=== PATIENT | female | born 1995 | race Caucasian/White ===

== ENCOUNTER 2019-05-24 11:21 | Emergency (ER) | payer OTHER ==
[2019-05-24] MEDS ORDERED: KETOROLAC TROMETHAMINE INJ/PF 30 MG/1 ML SDV IV ONE (12:44)
[2019-05-24] MEDS ORDERED: DIPHENHYDRAMINE HCL 50 MG/ML VIAL IV ONE (12:44)
[2019-05-24] MEDS ORDERED: NORMAL SALINE 1000 ML 1,000 ML IV ONE (12:44)
[2019-05-24] MEDS ORDERED: ONDANSETRON HCL INJ/PF 4 MG/2 ML SDV IV ONE (12:44)
--- NOTE | 2019-05-24 12:44 | ER Document Report ---
HPI - HPI Time Seen by Provider: 05/24/19 12:17 Pain Level: 5 Notes: Otherwise healthy 24-year-old female presenting to the emergency department with a headache that began yesterday. Patient describes it as a gradual onset, she states there is associated nausea with vomiting. She states she smoked 3 cigarettes yesterday which was the first time she had ever done this and she thinks the headache may be related to that. - REPRODUCTIVE LMP: 05/21/19 Reproductive: DENIES: : Past Medical History - General Information source: Patient - Social History Smoking Status: Current Some Day Smoker Family History: Reviewed & Not Pertinent Patient has suicidal ideation: No Patient has homicidal ideation: No - Medical History Medical History: Negative Surgical Hx: Negative Vertical Provider Document - CONSTITUTIONAL Notes: PHYSICAL EXAMINATION: GENERAL: Well-appearing, well-nourished and in no acute distress. HEAD: Atraumatic, normocephalic. EYES: Pupils equal round and reactive to light, extraocular movements intact, conjunctiva are normal. ENT: Nares patent, oropharynx clear without exudates. Moist mucous membranes. NECK: Normal range of motion, supple without lymphadenopathy LUNGS: Breath sounds clear to auscultation bilaterally and equal. No wheezes rales or rhonchi. HEART: Regular rate and rhythm without murmurs ABDOMEN: Soft, nontender, nondistended abdomen. No guarding, no rebound. No masses appreciated. Female : deferred Musculoskeletal: Normal range of motion, no pitting or edema. No cyanosis. NEUROLOGICAL: Cranial nerves grossly intact. Normal speech, normal gait. Normal sensory, motor exams PSYCH: Normal mood, normal affect. SKIN: Warm, Dry, normal turgor, no rashes or lesions noted. Course - Re-evaluation Re-evalutation: Presentation of a headache that appears to be most consistent with tension versus migrainous type headache. Headache was not maximal in onset, patient has no focal neurologic deficits, no nuchal rigidity, vital signs within normal limits, no papilledema, and patient is overall well in appearance. Based on clinical history and examination I do not suspect an acute subarachnoid hemorrhage, dural venous sinus thrombosis, acute meningitis, or intercranial mass. Given my low clinical suspicion for any acute life-threatening etiology, I do not feel advanced neuro imaging or laboratory testing is indicated at this time. Will proceed with headache cocktail and reassess. Patient reports headache completely resolved after administration of medications here in the emergency department. She will be discharged home at this time. - Vital Signs Vital signs: Temp Pulse Resp BP Pulse Ox 97.7 F 83 12 110/68 100 05/24/19 11:34 05/24/19 11:34 05/24/19 11:34 05/24/19 11:34 05/24/19 11:34 Discharge - Discharge Clinical Impression: Headache Qualifiers: Headache type: unspecified Headache chronicity pattern: unspecified pattern Intractability: not intractable Qualified Code(s): R51 - Headache Condition: Stable Disposition: HOME, SELF-CARE Additional Instructions: You were seen today for a migraine headache. Please follow-up with your primary care doctor regarding today's ED visit. Return to emergency department immediately if you develop a headache that gets to its maximum severity within 20 minutes of onset, you pass out, you develop weakness, numbness, changes in your vision, become unable to keep any fluids down for more than 12 hours, or develop a fever greater than 100.4 degrees Fahrenheit. If you develop a similar migraine headache in the future I recommend that you immediately take 600 mg of ibuprofen and 50 mg of Benadryl and go to sleep as quickly as possible. This can often prevent your migraine headache from becoming severe. Prescriptions: Ondansetron [Zofran Odt 4 mg Tablet] 1 - 2 tab PO Q4H PRN #15 tab.rapdis PRN Reason: For Nausea/Vomiting
[2019-05-24 14:37] VITALS: BP 104/49
== END 2019-05-24 14:38 | disposition home or self-care (01) ==
LOC: ER 11:21
DX: R51 Headache (principal); R11.2 Nausea with vomiting, unspecified; F17.210 Nicotine dependence, cigarettes, uncomplicated
CPT/HCPCS: 99283; 96361; 96374; 96375; J1200; J1885; J2405; J7030

== ENCOUNTER 2019-10-24 00:37 | Emergency (ER) | payer OTHER ==
[2019-10-24] MEDS ORDERED: IBUPROFEN 400 MG TABLET PO ONE (01:42)
--- NOTE | 2019-10-24 03:28 | RADIOLOGY REPORT (SQ) ---
CHEST X-RAY 2 view on 10/24/2019 at 3:02 AM CLINICAL INDICATION: Chest pain COMPARISON: None FINDINGS: The lungs are clear. Cardiac, hilar and mediastinal contours are within normal limits. Pulmonary vascularity is within normal limits. No bony abnormality is noted. IMPRESSION: No active disease.
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
[2019-10-24 05:36] VITALS: BP 98/59
[2019-10-24] MEDS ORDERED: ONDANSETRON 4 MG TAB.RAPDIS PO ONE (05:51)
[2019-10-24] MEDS ORDERED: OXYCODONE-ACETAMINOPHEN 5-325 MG TABLET PO ONE (05:51)
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
== END 2019-10-24 06:00 | disposition home or self-care (01) ==
LOC: ER 00:37
DX: M79.641 Pain in right hand (principal); M25.531 Pain in right wrist; R07.81 Pleurodynia; M54.5 Low back pain; V87.7XXA Person injured in collision between other specified motor vehicles (traffic), initial encounter
CPT/HCPCS: 99284; 71046; 73130; S0119; J3490

== ENCOUNTER 2019-10-26 22:58 | Emergency (ER) | payer OTHER ==
[2019-10-26 23:13] VITALS: BP 116/77
[2019-10-26] MEDS ORDERED: ACETAMINOPHEN 325 MG TABLET PO ONE (23:33)
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
== END 2019-10-26 23:40 | disposition home or self-care (01) ==
LOC: ER 22:58
DX: M54.40 Lumbago with sciatica, unspecified side (principal); V49.9XXA Car occupant (driver) (passenger) injured in unspecified traffic accident, initial encounter; F41.9 Anxiety disorder, unspecified
CPT/HCPCS: 99283

== ENCOUNTER 2019-11-05 12:37 | Emergency (ER) | payer OTHER ==
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
[2019-11-05 13:23] LABS: ABSOLUTE EOSINOPHILS # (AUTO) 0.2 10^3/uL (0.0-0.6); ABSOLUTE MONOCYTES (AUTO) 0.4 10^3/uL (0.1-1.4); ABSOLUTE NEUT (AUTO) 2.3 10^3/uL (1.7-8.2); BASOPHILS % (AUTO) 0.6 % (0-2); EOSINOPHILS % (AUTO) 3.4 % (0-6); HEMATOCRIT 39.1 % (36.0-47.0); HEMOGLOBIN 13.4 g/dL (12.0-15.5); LYMPHOCYTES % (AUTO) 41.5 % (13-45); MEAN CORPUSCULAR HEMOGLOBIN 30.3 pg (27.0-33.4); MEAN CORPUSCULAR HGB CONC 34.3 g/dL (32.0-36.0); MEAN CORPUSCULAR VOLUME 88 fl (80-97); MONOCYTES % (AUTO) 7.9 % (3-13); PLATELET COUNT 219 10^3/uL (150-450); RED BLOOD COUNT 4.44 10^6/uL (3.72-5.28); RED CELL DISTRIBUTION WIDTH 13.3 % (11.5-14.0); SEGMENTED NEUTROPHILS % (AUTO) 46.6 % (42-78); TOTAL CELLS COUNTED % (AUTO) 100 %; WHITE BLOOD COUNT 4.9 10^3/uL (4.0-10.5)
[2019-11-05 13:42] LABS: APPEARANCE,URINE CLEAR; BILIRUBIN,URINE NEGATIVE (NEGATIVE); COLOR,URINE YELLOW; GLUCOSE, URINE NEGATIVE (NEGATIVE); KETONES,URINE NEGATIVE (NEGATIVE); LEUKOCYTE ESTERASE,URINE NEGATIVE (NEGATIVE); NITRITE,URINE NEGATIVE (NEGATIVE); PROTEIN,URINE NEGATIVE (NEGATIVE); URINE SPECIFIC GRAVITY 1.017; UROBILINOGEN,URINE NEGATIVE mg/dL (<2.0)
[2019-11-05 13:46] LABS: ALKALINE PHOSPHATASE 48 U/L (38-126); ANION GAP 9 (5-19); ASPARTATE AMINO TRANSFERASE 22 U/L (14-36); BILIRUBIN,DIRECT 0.3 mg/dL (0.0-0.4); BILIRUBIN,TOTAL 1.2 mg/dL (0.2-1.3); BLOOD UREA NITROGEN 13 mg/dL (7-20); CALCIUM 9.8 mg/dL (8.4-10.2); CARBON DIOXIDE 28 mmol/L (22-30); CHLORIDE 101 mmol/L (98-107); GLUCOSE 115 mg/dL (75-110); POTASSIUM 4.2 mmol/L (3.6-5.0); TOTAL PROTEIN 7.7 g/dL (6.3-8.2)
[2019-11-05 13:49] LABS: ADD MANUAL MICROSCOPIC YES
--- NOTE | 2019-11-05 15:26 | RADIOLOGY REPORT (SQ) ---
EXAM DESCRIPTION: U/S OB TRANSVAG W/DOPPLER IMAGES COMPLETED DATE/TIME: 11/05/2019 3:07 pm REASON FOR STUDY: bleeding/pain COMPARISON: None. TECHNIQUE: Transvaginal and transabdominal static and realtime grayscale images acquired of the pelv is. Additional selected spectral and color Doppler images recorded. All images stored on PACs. CLINICAL AGE: 5 weeks 2 days. BHC,688 LIMITATIONS: None. FINDINGS: UTERUS: No visualized intrauterine . RIGHT ADNEXA: Complex area in the right adnexum measuring 2.4 x 2.6 x 1.7 cm. In this clinical setti ng ectopic cannot be excluded. This is separate from the right ovary. No evidence of tors ion. No adnexal free fluid. No adnexal masses. LEFT ADNEXA: Normal ovary with normal vascular flow. No adnexal free fluid. No adnexal masses. FREE FLUID: None. OTHER: No other significant finding. IMPRESSION: NO VISUALIZED INTRA- OR EXTRAUTERINE . COMPLEX AREA IN THE RIGHT ADNEXUM MEASURING 2.4 X 2.6 X 1.7 CM. ECTOPIC CANNOT BE EXCLUDED . FOLLOW-UP ULTRASOUND AND SERIAL BHCG LEVELS STRONGLY RECOMMENDED TO ACCURATELY ASSESS STATU S. TECHNICAL DOCUMENTATION: JOB ID: [id number] 2010 [employer]- All Rights Reserved Reading location - IP/workstation name: [email or web address]
--- NOTE | 2019-11-05 17:45 | ER Document Report ---
ED General - General Chief Complaint: Vag Bleeding, +preg <12wks Stated Complaint: VAGINAL BLEEDING Time Seen by Provider: 11/05/19 12:56 Mode of Arrival: Ambulatory Information source: Patient Notes: 24-year-old female coming in today with left pelvic cramping and bleeding. Patient notes that she had a positive home test last night. Came in to have this further evaluated. She denies fevers and shaking chills. No nausea vomiting or diarrhea. Patient reports that the bleeding is similar to that of her normal menses. TRAVEL OUTSIDE OF THE [place] IN LAST 30 DAYS: No - Related Data Allergies/Adverse Reactions: Penicillins Allergy (Verified 11/05/19 12:54) Sulfa (Sulfonamide Antibiotics) Allergy (Verified 11/05/19 12:54) Home Medications: no home meds Past Medical History - General Information source: Patient Last Menstrual Period: Sep 28 - Social History Smoking Status: Never Smoker Chew tobacco use (# tins/day): No Frequency of alcohol use: None Drug Abuse: None Family History: Reviewed & Not Pertinent Patient has homicidal ideation: No - Immunizations Immunizations up to date: Yes Hx Diphtheria, Pertussis, Tetanus Vaccination: Yes Review of Systems - Review of Systems Notes: Constitutional: No fevers. No chills. EENT: No eye redness. No eye pain. No ear pain. No sore throat. Cardiovascular: No chest pain. No palpitations. Respiratory: No cough. No shortness of breath. No respiratory distress. Gastrointestinal: +abdominal pain. No nausea, vomiting, or diarrhea. Genitourinary: Atraumatic. No lesions. No pain. +vaginal bleeding Musculoskeletal: Atraumatic. No swelling. No deformities. Skin: No rash or lesions. Lymphatic: No swollen lymph nodes. Neurologic: No headache. No syncope. Psychiatric: No suicidal or homicidal ideation. Physical Exam - Vital signs Vitals: Temp Pulse Resp BP Pulse Ox 98.0 F 93 18 96/75 L 98 11/05/19 12:43 11/05/19 12:43 11/05/19 12:43 11/05/19 12:43 11/05/19 12:43 - Notes Notes: General: Well-developed, well-nourished. In no acute distress. Non-toxic appearing. Cardiac: Well-perfused. Regular rate and rhythm. No murmurs, rubs, or gallops. Pulmonary: No respiratory distress. No cyanosis. Bilateral lung fiels are clear to auscultation. Abdominal: Tenderness to deep palpation left lower abdomen. No guarding or rebound. Bowel sounds are present in all 4 quadrants HEENT: Head is atraumatic. Conjunctivae not reddened. No tearing. PERRL. EOMI. Orbits atraumatic. No periorbital swelling or erythema. Oropharynx is without erythema, swelling, or exudates. Neck: Supple. No adenopathy. No meningismus. Dermatologic: Warm with good turgor. No rash. Atraumatic. Chest: Atraumatic. No chest wall tenderness to palpation. Musculoskeletal: Moves all extremities well. No range of motion deficits. no muscular or joint tenderness. No paraspinal muscle tenderness. no midline spinal tenderness or step-off. Genitourinary: Examination deferred Neurologic: No gross neurologic deficits. Psychiatric: Normal mood. Course - Re-evaluation Re-evalutation: 11/05/19 17:41 Patient's labs had resulted as well as her ultrasound prior to me seeing the patient. Patient has an 11,000 beta hCG quantitative and an ultrasound that shows no evidence of an intrauterine or extrauterine . There is a complex mass in the right adnexa concerning for ectopic . Ectopic was not ruled out on this study. I made a phone call to Dr. Harrison who is on-call for obstetrics. Given the information, he requested that we order the appropriate dosing of methotrexate and have the patient follow-up promptly in 4 days in the clinic to have her beta quantitative hCG levels rechecked. In the meantime have the patient return here if increasing pain or bleeding. - Vital Signs Vital signs: Temp Pulse Resp BP Pulse Ox 98.0 F 93 18 96/75 L 98 11/05/19 12:43 11/05/19 12:43 11/05/19 12:43 11/05/19 12:43 11/05/19 12:43 - Laboratory Result Diagrams: 11/05/19 13:10 11/05/19 13:10 Laboratory results interpreted by me: 11/05/19 11/05/19 13:10 13:10 Glucose 115 H Beta HCG, Quant 88451.00 H Urine Blood LARGE H - Diagnostic Test Radiology reviewed: Reports reviewed Discharge - Discharge Clinical Impression: Ectopic Qualifiers: Location of ectopic : unspecified location Intrauterine status: without intrauterine Qualified Code(s): O00.90 - Unspecified ectopic without intrauterine Condition: Good Disposition: HOME, SELF-CARE Instructions: Ectopic , Non-Surgical ([facility]) Additional Instructions: You are instructed to follow-up promptly in 4 days in the clinic where Dr. Harrison practices to have your blood work rechecked. Forms: Return to Work Referrals: CLARK HARRISON MD [ACTIVE STAFF] - 11/09/19 (exactly 4 days, call ahead to make the appointment)
[2019-11-05] MEDS ORDERED: DISPOSABLE IM ONE (19:00)
[2019-11-05] MEDS ORDERED: METHOTREXATE SODIUM IM ONE (19:00)
[2019-11-05 20:01] VITALS: BP 96/71
[2019-11-05] MEDS ORDERED: ONDANSETRON ODT 4 MG TAB (6 TAB/ER DISP) PO PRN (20:10)
== END 2019-11-05 20:16 | disposition home or self-care (01) ==
LOC: ER 12:37
DX: O00.90 Unspecified ectopic pregnancy without intrauterine pregnancy (principal)
CPT/HCPCS: 99284; 96372; 86900; 86901; 36415; 84702; 85025; 80053; 81001; 76817; 93976; J9260; J3490

== ENCOUNTER → 2019-11-26 | Outpatient (CLI) | payer OTHER ==
[2019-11-26 16:53] LABS: ABSOLUTE EOSINOPHILS # (AUTO) 0.2 10^3/uL (0.0-0.6); ABSOLUTE LYMPHOCYTES (AUTO) 2.1 10^3/uL (0.5-4.7); ABSOLUTE MONOCYTES (AUTO) 0.6 10^3/uL (0.1-1.4); ABSOLUTE NEUT (AUTO) 4.5 10^3/uL (1.7-8.2); BASOPHILS % (AUTO) 0.3 % (0-2); HEMATOCRIT 35.8 % (36.0-47.0); HEMOGLOBIN 12.5 g/dL (12.0-15.5); LYMPHOCYTES % (AUTO) 27.8 % (13-45); MEAN CORPUSCULAR HEMOGLOBIN 30.2 pg (27.0-33.4); MEAN CORPUSCULAR HGB CONC 34.9 g/dL (32.0-36.0); MEAN CORPUSCULAR VOLUME 87 fl (80-97); PLATELET COUNT 206 10^3/uL (150-450); RED BLOOD COUNT 4.13 10^6/uL (3.72-5.28); RED CELL DISTRIBUTION WIDTH 13.2 % (11.5-14.0); SEGMENTED NEUTROPHILS % (AUTO) 60.9 % (42-78); TOTAL CELLS COUNTED % (AUTO) 100 %; WHITE BLOOD COUNT 7.5 10^3/uL (4.0-10.5)
[2019-11-26 17:09] LABS: ALBUMIN 4.5 g/dL (3.5-5.0); ALKALINE PHOSPHATASE 44 U/L (38-126); ANION GAP 9 (5-19); ASPARTATE AMINO TRANSFERASE 19 U/L (14-36); BILIRUBIN,DIRECT 0.3 mg/dL (0.0-0.4); BILIRUBIN,TOTAL 0.7 mg/dL (0.2-1.3); BLOOD UREA NITROGEN 13 mg/dL (7-20); CALCIUM 9.5 mg/dL (8.4-10.2); CARBON DIOXIDE 27 mmol/L (22-30); CHLORIDE 103 mmol/L (98-107); GLUCOSE 91 mg/dL (75-110); TOTAL PROTEIN 6.7 g/dL (6.3-8.2)
== END ==
LOC: OD 15:32
PROVIDERS: ATTEND Obstetrics & Gynecology
DX: O00.90 Unspecified ectopic pregnancy without intrauterine pregnancy (principal)
CPT/HCPCS: 36415; 80053; 84702; 85025

== ENCOUNTER 2020-02-29 13:37 | Emergency (ER) | payer OTHER ==
--- NOTE | 2020-02-29 14:55 | ER Document Report ---
ED General - General Chief Complaint: Abdominal Pain Stated Complaint: ABDOMINAL PAIN Time Seen by Provider: 02/29/20 14:47 Primary Care Provider: VICKEY SHI MD [ACTIVE PROVISIONAL STAFF] - 03/02/20 TRAVEL OUTSIDE OF THE [place] IN LAST 30 DAYS: No - HPI Notes: 24-year-old female G3, P1 LMP 01/27/2020 with a history of a right ovarian ectopic in October 2019 presents to the emergency room today for complaints of left pelvic cramping that started these last couple of days. Denies any vaginal bleeding or vaginal discharge. Patient is concerned that she may be having an other ectopic. Patient reports that she was given methotrexate in October for her ectopic . Denies any fevers chills, abdominal pain, nausea, vomiting, diarrhea, chest pain, shortness of breath. Patient is A+ for her blood type. States she took a home test 3 days ago and it was positive. - Related Data Allergies/Adverse Reactions: Penicillins Allergy (Verified 11/05/19 12:54) Sulfa (Sulfonamide Antibiotics) Allergy (Verified 11/05/19 12:54) Past Medical History - General Information source: Patient - Social History Smoking Status: Unknown if Ever Smoked Family History: Reviewed & Not Pertinent - Immunizations Immunizations up to date: Yes Hx Diphtheria, Pertussis, Tetanus Vaccination: Yes Review of Systems - Review of Systems Constitutional: No symptoms reported EENT: No symptoms reported Cardiovascular: No symptoms reported Respiratory: No symptoms reported Gastrointestinal: No symptoms reported Genitourinary: No symptoms reported Female Genitourinary: See HPI Musculoskeletal: No symptoms reported Skin: No symptoms reported Hematologic/Lymphatic: No symptoms reported Neurological/Psychological: No symptoms reported Physical Exam - Vital signs Vitals: Temp Pulse Resp BP Pulse Ox 98.2 F 88 16 106/58 L 99 02/29/20 14:04 02/29/20 14:04 02/29/20 14:04 02/29/20 14:04 02/29/20 14:04 - Notes Notes: MEDICATIONS: I agree with the patient medications as charted by the RN. ALLERGIES: I agree with the allergies as charted by the RN. PAST MEDICAL HISTORY/PAST SURGICAL HISTORY: Reviewed and agree as charted by RN. SOCIAL HISTORY: Reviewed and agree as charted by RN. FAMILY HISTORY: No significant familial comorbid conditions directly related to patient complaint EXAM: Reviewed vital signs as charted by RN. PHYSICAL EXAMINATION: reviewed vital signs by RN GENERAL: Well-appearing, well-nourished and in no acute distress. HEAD: Atraumatic, normocephalic. EYES: Pupils equal round and reactive to light, extraocular movements intact, conjunctiva are normal. ENT: Nares patent, oropharynx clear without exudates. Moist mucous membranes. NECK: Normal range of motion, supple without lymphadenopathy LUNGS: Breath sounds clear to auscultation bilaterally and equal. No wheezes rales or rhonchi. HEART: Regular rate and rhythm without murmurs ABDOMEN: Soft, nontender, nondistended abdomen. No guarding, no rebound. No masses appreciated. Female : deferred Musculoskeletal: Normal range of motion, no pitting or edema. No cyanosis. NEUROLOGICAL: Cranial nerves grossly intact. Normal speech, normal gait. Normal sensory, motor exams PSYCH: Normal mood, normal affect. SKIN: Warm, Dry, normal turgor, no rashes or lesions noted. Course - Re-evaluation Re-evalutation: 02/29/20 14:54 Afebrile, vital stable, no distress. Nurses notes reviewed. CBC negative for leukocytosis or anemia, CMP negative for medical renal dysfunction, hCG G 87.27. Transvaginal ultrasound shows a complex cyst in the left ovary which could represent a hemorrhagic cyst or an involuting cyst. No intrauterine seen on ultrasound. Patient is only 4 weeks and 5 days. Discussed with patient that is unlikely that an intrauterine will show up on ultrasound due to being so early in her . she does need to have a repeat hCG done by her OBGYN. Advised if she experiences any vaginal bleeding with abdominal cramping, to follow-up with her [facility] to get a repeat hCG and ultrasound. Patient verbalized an understanding this plan of care and agreed with plan of care. Advised to continue taking prenatals. Avoid alcohol, smoking, lunch meat etc. after performing a Medical Screening Examination, I estimate there is LOW risk for ACUTE APPENDICITIS, BOWEL OBSTRUCTION, ACUTE CHOLECYSTITIS, PERFORATED DIVERTICULITIS, INCARCERATED HERNIA, PANCREATITIS, PELVIC INFLAMMATORY DISEASE, PERFORATED ULCER, ECTOPIC , or TUBO-OVARIAN ABSCESS, thus I consider the discharge disposition reasonable. Also, there is no evidence or peritonitis, sepsis, or toxicity. I have reevaluated this patient multiple times and no significant life threatening changes are noted. The patient and I have discussed the diagnosis and risks, and we agree with discharging home with close follow-up with the understanding that symptoms and presentations can change. We also discussed returning to the Emergency Department immediately if new or worsening symptoms occur. We have discussed the symptoms which are most concerning (e.g., bloody stool, fever, changing or worsening pain, vomiting) that necessitate immediate return. 02/29/20 18:55 - Vital Signs Vital signs: Temp Pulse Resp BP Pulse Ox 98.8 F 88 16 105/69 100 02/29/20 17:59 02/29/20 17:59 02/29/20 17:59 02/29/20 17:59 02/29/20 17:59 - Laboratory Results Result Diagrams: 02/29/20 15:23 02/29/20 15:23 Laboratory Results Interpreted: 02/29/20 15:23 Sodium 135.8 L Beta HCG, Quant 87.27 H Critical Laboratory Results Reviewed: No Critical Results - Radiology Results Critical Radiology Results Reviewed: No Critical Results Discharge - Discharge Clinical Impression: Left ovarian cyst, Pelvic pain with positive beta-human chorionic gonadotropin (BhCG) in female Condition: Stable Disposition: HOME, SELF-CARE Additional Instructions: You were seen for abdominal pain during . You did have a positive hCG but they were unable to see an intrauterine on today's ultrasound and this likely due to how early it is in your . Please follow-up with your [facility] in the next 24-48 hours for a repeat ultrasound. Return to the emergency department immediately if you have worsening of your pain, have persistent vomiting, develop a fever of greater than 100.4F, begin to have vaginal bleeding, or any other symptoms that are worrisome to you. Return immediately for any new or worsening symptoms. Follow up with primary care provider, call tomorrow to make followup appointment. Referrals: VICKEY SHI MD [ACTIVE PROVISIONAL STAFF] - 03/02/20
[2020-02-29 15:39] LABS: ABSOLUTE EOSINOPHILS # (AUTO) 0.1 10^3/uL (0.0-0.6); ABSOLUTE LYMPHOCYTES (AUTO) 2.5 10^3/uL (0.5-4.7); ABSOLUTE MONOCYTES (AUTO) 0.5 10^3/uL (0.1-1.4); ABSOLUTE NEUT (AUTO) 3.9 10^3/uL (1.7-8.2); BASOPHILS % (AUTO) 0.6 % (0-2); EOSINOPHILS % (AUTO) 1.4 % (0-6); HEMOGLOBIN 13.4 g/dL (12.0-15.5); LYMPHOCYTES % (AUTO) 35.7 % (13-45); MEAN CORPUSCULAR HEMOGLOBIN 29.5 pg (27.0-33.4); MEAN CORPUSCULAR HGB CONC 34.3 g/dL (32.0-36.0); MEAN CORPUSCULAR VOLUME 86 fl (80-97); MONOCYTES % (AUTO) 7.4 % (3-13); PLATELET COUNT 224 10^3/uL (150-450); RED BLOOD COUNT 4.54 10^6/uL (3.72-5.28); RED CELL DISTRIBUTION WIDTH 13.5 % (11.5-14.0); SEGMENTED NEUTROPHILS % (AUTO) 54.9 % (42-78); TOTAL CELLS COUNTED % (AUTO) 100 %; WHITE BLOOD COUNT 7.1 10^3/uL (4.0-10.5)
[2020-02-29 15:56] LABS: ALBUMIN 4.5 g/dL (3.5-5.0); ALKALINE PHOSPHATASE 45 U/L (38-126); ANION GAP 5 (5-19); ASPARTATE AMINO TRANSFERASE 23 U/L (14-36); BILIRUBIN,DIRECT 0.2 mg/dL (0.0-0.4); BILIRUBIN,TOTAL 0.5 mg/dL (0.2-1.3); BLOOD UREA NITROGEN 16 mg/dL (7-20); CALCIUM 9.7 mg/dL (8.4-10.2); CARBON DIOXIDE 26 mmol/L (22-30); CHLORIDE 105 mmol/L (98-107); GLUCOSE 84 mg/dL (75-110); POTASSIUM 4.2 mmol/L (3.6-5.0); TOTAL PROTEIN 7.3 g/dL (6.3-8.2)
--- NOTE | 2020-02-29 17:21 | RADIOLOGY REPORT (SQ) ---
EXAM DESCRIPTION: U/S OB TRANSVAGINAL W/O DOP IMAGES COMPLETED DATE/TIME: 02/29/2020 5:07 pm REASON FOR STUDY: L pelvic pain,+pregtest,hx ectopic R ovary COMPARISON: None. TECHNIQUE: Transvaginal static and realtime grayscale images acquired of the pelvis. Additional ez cted spectral and color Doppler images recorded. All images stored on PACs. [facility] CLINICAL DATES: LMP 01/27/2020 4 weeks 5 days LIMITATIONS: None. FINDINGS: No intrauterine gestation is seen at this time. UTERUS: No masses. No anomalies. CERVICAL LENGTH: 2.7 cm. Closed. RIGHT ADNEXA: Normal ovary with normal vascular flow. 3.4 x 2.4 x 2.2 cm. No adnexal free fluid. No adnexal masses. LEFT ADNEXA: Ovary with normal vascular flow. There is a 2.9 x 2.7 x 2.4 cm complex area. 4.1 x 3 x 2.3 cm. No adnexal free fluid. No adnexal masses. FREE FLUID: Small amount of free fluid. OTHER: No other significant finding. IMPRESSION: No intrauterine gestation is seen at this time. Follow-up as clinically indicated. The re is a complex cystic area in the left ovary which could represent a hemorrhagic cyst or involuting cyst. TECHNICAL DOCUMENTATION: JOB ID: [id number] 2010 [employer]- All Rights Reserved rev-07/01 Reading location - IP/workstation name: [email or web address]
[2020-02-29 18:01] VITALS: BP 105/69
== END 2020-02-29 18:01 | disposition home or self-care (01) ==
LOC: ER 13:37
DX: O26.891 Other specified pregnancy related conditions, first trimester (principal); N83.202 Unspecified ovarian cyst, left side; R10.9 Unspecified abdominal pain; R10.2 Pelvic and perineal pain; Z3A.01 Less than 8 weeks gestation of pregnancy; Z79.899 Other long term (current) drug therapy; Z88.0 Allergy status to penicillin; Z88.2 Allergy status to sulfonamides
CPT/HCPCS: 36415; 76817; 80053; 84702; 85025; 99284